=== PATIENT | male | born 1975 | race Caucasian/White ===

== ENCOUNTER 2017-06-02 12:07 | Emergency (ER) | payer OTHER ==
[~2017-06-02] VITALS: Ht 177.8 cm; Wt 111.1 kg
[2017-06-02 12:33] VITALS: BP 168/124
[2017-06-02] MEDS ORDERED: FLUORESCEIN 1MG EYE STRIP. OD ONE (12:45)
[2017-06-02] MEDS ORDERED: TETRACAINE 0.5% OPHTH SOLUTION 4ML BOTTLE. OD ONE (12:45)
[2017-06-02] MEDS ORDERED: POLY10DR OD (12:55)
--- NOTE | 2017-06-02 12:59 | PHYS DOC ---
General Chief Complaint: EYE PROBLEMS Stated Complaint: EYE PROBLEM Time Seen by MD: 12:22 Source: patient Exam Limitations: no limitations Problems: History of Present Illness Initial Comments Patient is a 41-year-old male who comes to the ED complaining of right eye pain. Patient states that immediately prior to arrival while eating he rubbed his eye because he felt as if something was in it. He states that he developed sudden severe photophobia tearing and right eye pain. He was eating was sobbing at the time and is unsure if he got any in his eye. He does not wear contact lenses and denies any other trauma denies any blurred vision he has no pain with extraocular motion. On arrival he is in severe distress complaining of right eye pain. Tetanus is up-to-date Timing/Duration: abrupt Severity: severe Location: eye (R) Prearrival Treatment: flushing eyes Modifying Factors: improves with other Associated Symptoms: other Allergies: Coded Allergies: No Known Drug Allergies (Unverified , 06/02/17) Past Medical History Medical History: no pertinent history Surgical History: noncontributory Social History Smoker: non-smoker Alcohol: none Drugs: none Constitutional: denies chills, denies diaphoresis, denies fever Eyes: see HPI Ears: denies dizziness, denies pain Nose: denies clots, denies congestion Throat: denies pain, denies discharge, denies neck stiffness Respiratory: denies cough, denies shortness of breath Cardiovascular: denies chest pain, denies palpitations Gastrointestinal: denies nausea, denies vomiting Physical Exam General Appearance: WD/WN, moderate distress Eyes: right eye other (conjunctivae injected, symptoms resolved with tetracaine drops. 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 I discussed [id number] prescription medications I discussed close follow-up with PCP and eye doctor. Patient's questions were answered I gave departure instructions verbally [id number] and provided them in written format. Patient expressed agreement and understanding of treatment plan Departure Time of Disposition: 12:56 Disposition: 01 HOME, SELF-CARE Diagnosis: corneal abrasion R eye, eye FB (resolved) Condition: GOOD Patient Instructions: Eye - Corneal Abrasion, [id number] Additional Instructions: Please review the patient education materials given by ED staff. Avoid rubbing your eyes to prevent further damage. [id number] Tylenol and ibuprofen as needed. Avoid bright lights if they bother. Prescription: Polytrim Follow-up with tractor technician or gre tutor this week for recheck. Return to ED with new or changing symptoms. URIAH LARA DO Jun 02, 2017 12:58
== END 2017-06-02 13:04 | disposition home or self-care (01) ==
LOC: ER 12:07
DX: S05.01XA Injury of conjunctiva and corneal abrasion without foreign body, right eye, initial encounter (principal); X58.XXXA Exposure to other specified factors, initial encounter; Y93.89 Activity, other specified; Y99.8 Other external cause status; Y92.89 Other specified places as the place of occurrence of the external cause
CPT/HCPCS: 99283